=== PATIENT | female | born 1990 | race Two or more races ===

== ENCOUNTER 2023-12-03 14:15 | Inpatient (IN) | payer MEDICAID ==
[~2023-12-03] VITALS: Ht 165.1 cm; Wt 88.2 kg
[2023-12-03] MEDS ORDERED: CIPR500T10 PO (14:28)
[2023-12-03] MEDS: SODIUM CHLORIDE 0.9% 2,650 ML IV ONE (14:38)
[2023-12-03 14:51] LABS: BASOPHILS % (AUTO) 0.3 % (0.0-2.0); EOSINOPHILS % (AUTO) 0 % (1.0-6.0); HEMATOCRIT 37.2 % (36-46); HEMOGLOBIN 12.3 g/dL (12.0-16.0); LYMPHOCYTES % (AUTO) 12.7 % (22.0-44.0); MEAN CORPUSCULAR HEMOGLOBIN 29.9 pg (26.0-34.0); MEAN CORPUSCULAR HGB CONC 33.2 G/dL (31.0-37.0); MEAN CORPUSCULAR VOLUME 90 fL (80-100); MONOCYTES # (AUTO) 1.2 K/uL (0.1-1.0); MONOCYTES % (AUTO) 7.8 % (2.0-9.0); NEUTROPHILS # (AUTO) 12.2 K/uL (1.8-7.7); NEUTROPHILS % (AUTO) 79.2 % (40.0-70.0); PLATELET COUNT (AUTO) 266 K/uL (150-450); RED BLOOD CELL COUNT(AUTO) 4.12 MIL/uL (4.00-5.20); RED CELL DISTRIBUTION WIDTH 13.7 % (11.5-14.5); WHITE BLOOD COUNT (AUTO) 15.4 K/uL (4.5-11.0)
[2023-12-03] MEDS: IBUPROFEN 600 MG TABLET PO ONE (15:00)
[2023-12-03 15:10] LABS: ANION GAP 13 mmol/L (8-16); CALCIUM, TOTAL 8.6 mg/dL (8.8-10.5); CARBON DIOXIDE 23 mmol/L (22-29); CHLORIDE 99 mmol/L (98-107); CREATININE 1.01 mg/dL (0.60-1.30); GLOMERULAR FILTR. RATE CALC > 60 mL/min (>60); GLUCOSE,RANDOM 116 mg/dL (70-110); POTASSIUM 3.2 mmol/L (3.5-5.1); SODIUM SERUM 135 mmol/L (136-145); UREA NITROGEN, BLOOD 8 mg/dL (7-18)
[2023-12-03] MEDS: CefTRIAXone 1 GM/DEXTROSE 50 ML IV ONE (15:16)
[2023-12-03 15:17] LABS: APPEARANCE,URINE HAZY (CLEAR); BILIRUBIN,URINE NEGATIVE (NEGATIVE); COLOR,URINE YELLOW (YELLOW); GLUCOSE, URINE (UA) NEGATIVE (NEGATIVE); KETONES,URINE NEGATIVE (NEGATIVE); LEUKOCYTE ESTERASE ,URINE SMALL (NEGATIVE); NITRATE,URINE NEGATIVE (NEGATIVE); OCCULT BLOOD,URINE SMALL (NEGATIVE); PROTEIN,URINE 30-70 mg/dL (NEGATIVE); SPECIFIC GRAVITIY, URINE 1.018 (1.003-1.030); UROBILINOGEN,URINE <=1.0 mg/dL (<=1.0)
[2023-12-03 15:20] LABS: LACTIC ACID 1.2 mmol/L (0.4-2.0)
[2023-12-03 15:23] LABS: ALANINE AMINOTRANSFERASE 23 U/L (12-78); ALBUMIN 3.2 g/dL (3.4-5.0); ALKALINE PHOSPHATASE 62 U/L (46-116); ASPARTATE AMINOTRANSFERASE 15 U/L (15-37); BILIRUBIN,TOTAL 0.5 mg/dL (0.1-1.0); HCG,QUANTITATIVE < 1 mIU/mL (0-6); TOTAL PROTEIN, SERUM 7.9 g/dL (6.4-8.2)
[2023-12-03] MEDS ORDERED: SODIUM CHLORIDE 0.9% 100 ML ONE (15:56)
[2023-12-03] MEDS ORDERED: 0.9% SODIUM CHLORIDE 10 ML SYRINGE IVP ONE (15:56)
[2023-12-03] MEDS ORDERED: IOHEXOL 350 MG/ML 100 ML VIAL ONE (15:56)
[2023-12-03 16:04] LABS: BACTERIA,URINE Moderate /HPF (None Seen); SQUAMOUS EPITHELIAL CELL,UR Few /LPF (None Seen)
[2023-12-03] MEDS: *CLINICAL-LEVOFLOXACIN IVPB DOSING CLINICAL ONE (16:21)
[2023-12-03] MEDS ORDERED: OxyCODONE HCL/ACETAMINOPHEN 5-325 MG TABLET PO PRN (16:30)
[2023-12-03] MEDS ORDERED: POTASSIUM CHL 10 MEQ/WATER 50 ML IV PRN (16:30)
[2023-12-03] MEDS ORDERED: ONDANSETRON HCL 4 MG/2 ML VIAL IVP PRN (16:30)
[2023-12-03] MEDS: LEVOFLOXACIN 750 MG/D5% WATER 150 ML IV SCH (16:36)
[2023-12-03] MEDS: POTASSIUM CHLORIDE 20 MEQ ER TABLET PO PRN (16:37)
[2023-12-03] MEDS: SODIUM CHLORIDE 0.9% 1,000 ML IV ONE (18:26)
[2023-12-03] MEDS: DOCUSATE SODIUM 100 MG CAPSULE PO SCH (20:09)
[2023-12-03 22:30] VITALS: BP 120/72; PULSE 82; RESP 18; TEMP 98.2; O2SAT 99
[2023-12-04 04:29] VITALS: BP 121/69; PULSE 95; RESP 18; TEMP 98.6; O2SAT 100
[2023-12-04] MEDS: FAMOTIDINE 20 MG TABLET PO SCH (08:31)
[2023-12-04] MEDS: SODIUM CHLORIDE 0.9% 1,000 ML IV ONE (09:55)
[2023-12-04 11:55] VITALS: BP 115/85; PULSE 80; RESP 18; TEMP 97.6; O2SAT 100
[2023-12-04 16:27] VITALS: BP 117/74; PULSE 81; RESP 18; TEMP 98.9; O2SAT 99
[2023-12-04 20:10] VITALS: BP 107/54; PULSE 88; RESP 19; TEMP 98.3; O2SAT 98
[2023-12-04] MEDS ORDERED: ACETAMINOPHEN 325 MG TABLET PO PRN (20:30)
[2023-12-04] MEDS: ACETAMINOPHEN 325 MG TABLET PO PRN (20:54)
[2023-12-05 04:45] VITALS: BP 99/68; PULSE 68; RESP 18; TEMP 97.8; O2SAT 99
[2023-12-05 08:00] VITALS: BP 113/72; PULSE 60; RESP 18; TEMP 97.5; O2SAT 100
[2023-12-05 12:48] LABS: BASOPHILS % (AUTO) 0.8 % (0.0-2.0); HEMATOCRIT 38.6 % (36-46); HEMOGLOBIN 12.7 g/dL (12.0-16.0); LYMPHOCYTES # (AUTO) 2.4 K/uL (1.0-4.8); LYMPHOCYTES % (AUTO) 37.5 % (22.0-44.0); MEAN CORPUSCULAR HEMOGLOBIN 29.8 pg (26.0-34.0); MEAN CORPUSCULAR HGB CONC 32.8 G/dL (31.0-37.0); MEAN CORPUSCULAR VOLUME 91 fL (80-100); MONOCYTES # (AUTO) 0.5 K/uL (0.1-1.0); MONOCYTES % (AUTO) 6.9 % (2.0-9.0); NEUTROPHILS # (AUTO) 3.4 K/uL (1.8-7.7); NEUTROPHILS % (AUTO) 52.8 % (40.0-70.0); PLATELET COUNT (AUTO) 331 K/uL (150-450); RED BLOOD CELL COUNT(AUTO) 4.25 MIL/uL (4.00-5.20); RED CELL DISTRIBUTION WIDTH 13.5 % (11.5-14.5); WHITE BLOOD COUNT (AUTO) 6.5 K/uL (4.5-11.0)
[2023-12-05] MEDS ORDERED: LEVO750T68 PO (15:12)
== END 2023-12-05 17:01 | disposition home or self-care (01) | DRG 720 ==
LOC: EMS 14:15 → EDH 21:56 → 6N 22:23
PROVIDERS: ADMIT Internal Medicine; ATTEND Internal Medicine
DX: A41.9 Sepsis, unspecified organism (principal); E87.1 Hypo-osmolality and hyponatremia; N13.6 Pyonephrosis; E66.9 Obesity, unspecified; E87.6 Hypokalemia; Z87.442 Personal history of urinary calculi; Z68.32 Body mass index [BMI] 32.0-32.9, adult
CPT/HCPCS: 74177; 80053; 81001; 83605; 84132; 84145; 84702; 85025; 87040; 87086; 87186; 93005; 99285; J0696; J1956; J7030; J7050

== ENCOUNTER 2024-07-24 21:44 | Emergency (ER) | payer MEDICAID, OTHER ==
[~2024-07-24] VITALS: Ht 165.1 cm; Wt 63.6 kg
[~2024-07-24 21:44] MED LIST: LEVO750T68 PO
[2024-07-24 22:59] LABS: COVID AG,FIA SOURCE NASAL SWAB
[2024-07-24 23:03] LABS: APPEARANCE,URINE HAZY (CLEAR); BILIRUBIN,URINE NEGATIVE (NEGATIVE); COLOR,URINE YELLOW (YELLOW); GLUCOSE, URINE (UA) NEGATIVE (NEGATIVE); KETONES,URINE NEGATIVE (NEGATIVE); LEUKOCYTE ESTERASE ,URINE LARGE (NEGATIVE); NITRATE,URINE NEGATIVE (NEGATIVE); OCCULT BLOOD,URINE MODERATE (NEGATIVE); PH,URINE 6.5 (5.0-8.0); PROTEIN,URINE 30-70 mg/dL (NEGATIVE); SPECIFIC GRAVITIY, URINE 1.022 (1.003-1.030); UROBILINOGEN,URINE <=1.0 mg/dL (<=1.0)
[2024-07-24 23:17] LABS: BASOPHILS % (AUTO) 0.4 % (0.0-2.0); EOSINOPHILS % (AUTO) 0.2 % (1.0-6.0); HEMOGLOBIN 12.9 g/dL (12.0-16.0); LYMPHOCYTES # (AUTO) 1.4 K/uL (1.0-4.8); LYMPHOCYTES % (AUTO) 11.8 % (22.0-44.0); MEAN CORPUSCULAR HEMOGLOBIN 30.1 pg (26.0-34.0); MEAN CORPUSCULAR HGB CONC 33.8 G/dL (31.0-37.0); MEAN CORPUSCULAR VOLUME 89 fL (80-100); MONOCYTES % (AUTO) 8.4 % (2.0-9.0); NEUTROPHILS # (AUTO) 9.6 K/uL (1.8-7.7); NEUTROPHILS % (AUTO) 79.2 % (40.0-70.0); PLATELET COUNT (AUTO) 290 K/uL (150-450); RED BLOOD CELL COUNT(AUTO) 4.27 MIL/uL (4.00-5.20); RED CELL DISTRIBUTION WIDTH 13.3 % (11.5-14.5); WHITE BLOOD COUNT (AUTO) 12.1 K/uL (4.5-11.0)
[2024-07-24 23:19] LABS: SARS-COV2 (COVID) ANTIGEN,FIA Negative (Negative)
[2024-07-24 23:20] LABS: INFLUENZA TYPE A NEGATIVE FOR TYPE A (NEGATIVE); INFLUENZA TYPE B NEGATIVE FOR TYPE B (NEGATIVE)
[2024-07-24 23:21] LABS: BACTERIA,URINE Moderate /HPF (None Seen); SQUAMOUS EPITHELIAL CELL,UR Rare /LPF (None Seen); WBC,URINE >100 /HPF (0-5)
[2024-07-24 23:24] LABS: ANION GAP 8 mmol/L (8-16); CALCIUM, TOTAL 8.4 mg/dL (8.8-10.5); CARBON DIOXIDE 25 mmol/L (22-29); CHLORIDE 103 mmol/L (98-107); CREATININE 0.96 mg/dL (0.60-1.30); GLOMERULAR FILTR. RATE CALC > 60 mL/min (>60); GLUCOSE,RANDOM 130 mg/dL (70-110); POTASSIUM 3.8 mmol/L (3.5-5.1); SODIUM SERUM 136 mmol/L (136-145); UREA NITROGEN, BLOOD 9 mg/dL (7-18)
[2024-07-24 23:29] LABS: PROTHROMBIN TIME 10.7 SEC (9.4-11.6)
[2024-07-24 23:34] LABS: LACTIC ACID 0.9 mmol/L (0.4-2.0)
[2024-07-25] MEDS: KETOROLAC TROMETHAMINE 30 MG/ML VIAL IVP ONE (02:08)
[2024-07-25] MEDS: SODIUM CHLORIDE 0.9% 1,000 ML IV ONE (02:08)
[2024-07-25] MEDS: CefTRIAXone 1 GM/DEXTROSE 50 ML IV ONE (02:09)
[2024-07-25 04:15] VITALS: BP 96/51; PULSE 87; RESP 18; TEMP 98.4; O2SAT 99
[2024-07-25] MEDS ORDERED: CEPH-558 PO (04:31)
[2024-07-25] MEDS ORDERED: TRAM50TA5 PO (04:31)
== END 2024-07-25 04:58 | disposition home or self-care (01) ==
LOC: EMS 21:44
DX: N20.0 Calculus of kidney (principal); N39.0 Urinary tract infection, site not specified; R00.0 Tachycardia, unspecified; Z90.49 Acquired absence of other specified parts of digestive tract; Z87.440 Personal history of urinary (tract) infections; Z20.822 Contact with and (suspected) exposure to COVID-19
CPT/HCPCS: 99285; 87426; 80048; 81001; 83605; 84703; 85025; 85610; 87040; 87077; 87086; 87186; 87804; 93005; 84145; 74176; 96365; 96366; 96375; 36415; J1885; J0696; J7030; 96360

== ENCOUNTER 2024-12-14 11:50 | Inpatient (IN) | payer OTHER ==
[~2024-12-14] VITALS: Ht 167.6 cm; Wt 87.7 kg
[~2024-12-14 11:50] MED LIST changes: +AMOX1TAB15 PO; -LEVO750T68 PO; +TRAM50TA5 PO
[2024-12-14 12:26] LABS: COVID AG,FIA SOURCE NASAL SWAB
[2024-12-14 12:30] LABS: PLATELET COUNT (AUTO) 335 K/uL (150-450); RED BLOOD CELL COUNT(AUTO) 4.12 MIL/uL (4.00-5.20); RED CELL DISTRIBUTION WIDTH 13.3 % (11.5-14.5); WHITE BLOOD COUNT (AUTO) 20.9 K/uL (4.5-11.0)
[2024-12-14 12:31] LABS: APPEARANCE,URINE CLEAR (CLEAR); GLUCOSE, URINE (UA) NEGATIVE (NEGATIVE); LEUKOCYTE ESTERASE ,URINE MODERATE (NEGATIVE); NITRATE,URINE NEGATIVE (NEGATIVE); OCCULT BLOOD,URINE MODERATE (NEGATIVE); SPECIFIC GRAVITIY, URINE 1.023 (1.003-1.030)
[2024-12-14 12:43] LABS: LACTIC ACID 2.4 mmol/L (0.4-2.0)
[2024-12-14 12:46] LABS: CREATININE 0.79 mg/dL (0.60-1.30); GLUCOSE,RANDOM 128 mg/dL (70-110); SODIUM SERUM 134 mmol/L (136-145); UREA NITROGEN, BLOOD 10 mg/dL (7-18)
[2024-12-14 12:46] LABS: SARS-COV2 (COVID) ANTIGEN,FIA Negative (Negative)
[2024-12-14 12:47] LABS: CALCIUM, TOTAL 8.7 mg/dL (8.8-10.5); GLOMERULAR FILTR. RATE CALC > 60 mL/min (>60)
[2024-12-14 12:50] LABS: INFLUENZA TYPE A NEGATIVE FOR TYPE A (NEGATIVE); INFLUENZA TYPE B NEGATIVE FOR TYPE B (NEGATIVE)
[2024-12-14] MEDS: LIDOCAINE/PF 1% 2 ML VIAL IM ONE (12:53)
[2024-12-14] MEDS: CefTRIAXone SODIUM 1 GM/VIAL IM ONE (12:53)
[2024-12-14] MEDS: ACETAMINOPHEN 500 MG TABLET PO ONE (12:54)
[2024-12-14] MEDS: IBUPROFEN 600 MG TABLET PO ONE (12:54)
[2024-12-14] MEDS: DOXYCYCLINE HYCLATE 100 MG TABLET PO ONE (12:54)
[2024-12-14 13:03] LABS: SQUAMOUS EPITHELIAL CELL,UR Many /LPF (None Seen)
[2024-12-14] MEDS: LIDOCAINE 1% 10 ML VIAL SQ ONE (13:19)
[2024-12-14] MEDS: ONDANSETRON HCL 4 MG/2 ML VIAL IM ONE (13:19)
[2024-12-14] MEDS: VANCOMYCIN HCL 1.25 GM in DEXTROSE 5%-WATER 250 ML IV ONE (14:34)
[2024-12-14] MEDS: SODIUM CHLORIDE 0.9% 2,650 ML IV ONE (14:35)
[2024-12-14] MEDS ORDERED: BISACODYL 10 MG RECTAL RECTAL SUPPOSITORY PR PRN (16:00)
[2024-12-14] MEDS ORDERED: ZOLPIDEM TARTRATE 5 MG TABLET PO PRN (16:00)
[2024-12-14] MEDS ORDERED: MAGNESIUM HYDROXIDE SUSPENSION 30 ML UDCUP PO PRN (16:00)
[2024-12-14] MEDS: SODIUM CHLORIDE 0.9% 1,000 ML IV ONE (16:48)
[2024-12-14] MEDS: HEPARIN SODIUM,PORCINE 5,000 UNITS/ML VIAL SQ SCH (16:48)
[2024-12-14] MEDS: HYDROCODONE/ACETAMINOPHEN 5-325 MG TABLET PO PRN (16:48)
[2024-12-14] MEDS: DOCUSATE SODIUM 100 MG CAPSULE PO SCH (20:28)
[2024-12-14] MEDS: DOXYCYCLINE HYCLATE 100 MG TABLET PO SCH (20:59)
[2024-12-14 22:35] VITALS: BP 109/57; PULSE 94; RESP 18; TEMP 97.9; O2SAT 99
[2024-12-14] MEDS: VANCOMYCIN HCL 1 GM/D5% WATER 200 ML IV SCH (23:07)
[2024-12-14 23:23] VITALS: BP 106/57; PULSE 84; RESP 19; O2SAT 99
[2024-12-15 05:15] VITALS: BP 94/58; PULSE 84; RESP 18; TEMP 98.6; O2SAT 100
[2024-12-15 07:27] LABS: PLATELET COUNT (AUTO) 262 K/uL (150-450); RED BLOOD CELL COUNT(AUTO) 3.68 MIL/uL (4.00-5.20); RED CELL DISTRIBUTION WIDTH 13.4 % (11.5-14.5); WHITE BLOOD COUNT (AUTO) 14.8 K/uL (4.5-11.0)
[2024-12-15 07:36] LABS: CALCIUM, TOTAL 8.0 mg/dL (8.8-10.5); CREATININE 0.52 mg/dL (0.60-1.30); GLOMERULAR FILTR. RATE CALC > 60 mL/min (>60); GLUCOSE,RANDOM 114 mg/dL (70-110); SODIUM SERUM 139 mmol/L (136-145); UREA NITROGEN, BLOOD 7 mg/dL (7-18)
[2024-12-15 08:00] VITALS: BP 98/70; PULSE 99; RESP 19; TEMP 98.2; O2SAT 100
[2024-12-15] MEDS: PANTOPRAZOLE SODIUM 40 MG DR TABLET PO SCH (08:20)
[2024-12-15 14:52] VITALS: BP 110/64; PULSE 114; RESP 19; O2SAT 100
[2024-12-15] MEDS: MORPHINE SULFATE 4 MG/ML SYRINGE IVP PRN (14:53)
[2024-12-15] MEDS: ACETAMINOPHEN 325 MG TABLET PO PRN (16:20)
[2024-12-15 19:54] VITALS: BP 111/71; PULSE 99; RESP 18; TEMP 98.6; O2SAT 100
[2024-12-16 03:20] VITALS: BP 101/67; PULSE 90; RESP 16; TEMP 98; O2SAT 100
[2024-12-16 06:32] LABS: PLATELET COUNT (AUTO) 291 K/uL (150-450); RED BLOOD CELL COUNT(AUTO) 3.67 MIL/uL (4.00-5.20); RED CELL DISTRIBUTION WIDTH 13.2 % (11.5-14.5); WHITE BLOOD COUNT (AUTO) 15.1 K/uL (4.5-11.0)
[2024-12-16 06:40] LABS: CALCIUM, TOTAL 8.1 mg/dL (8.8-10.5); CREATININE 0.50 mg/dL (0.60-1.30); GLOMERULAR FILTR. RATE CALC > 60 mL/min (>60); GLUCOSE,RANDOM 112 mg/dL (70-110); SODIUM SERUM 138 mmol/L (136-145); UREA NITROGEN, BLOOD 6 mg/dL (7-18)
[2024-12-16 08:18] VITALS: BP 105/62; PULSE 94; RESP 18; TEMP 98.8; O2SAT 98
[2024-12-16] MEDS: VANCOMYCIN HCL 1.25 GM in DEXTROSE 5%-WATER 250 ML IV SCH (08:44)
[2024-12-16] MEDS: ONDANSETRON HCL 4 MG/2 ML VIAL IVP PRN (08:54)
[2024-12-16] MEDS: POTASSIUM CHLORIDE 20 MEQ ER TABLET PO ONE (13:01)
[2024-12-16 16:27] VITALS: BP 109/57; PULSE 85; RESP 18; TEMP 98.4; O2SAT 100
[2024-12-16 19:45] VITALS: BP 102/60; PULSE 97; RESP 18; TEMP 97.3; O2SAT 98
[2024-12-16] MEDS ORDERED: SODIUM CHLORIDE 0.9% 250 ML IV ONE (23:12)
[2024-12-17 05:17] VITALS: BP 104/67; PULSE 79; RESP 18; TEMP 97.9; O2SAT 99
[2024-12-17 07:56] LABS: PLATELET COUNT (AUTO) 384 K/uL (150-450); RED BLOOD CELL COUNT(AUTO) 4.16 MIL/uL (4.00-5.20); RED CELL DISTRIBUTION WIDTH 13.0 % (11.5-14.5); WHITE BLOOD COUNT (AUTO) 10.2 K/uL (4.5-11.0)
[2024-12-17 08:07] LABS: CALCIUM, TOTAL 8.6 mg/dL (8.8-10.5); CREATININE 0.50 mg/dL (0.60-1.30); GLOMERULAR FILTR. RATE CALC > 60 mL/min (>60); GLUCOSE,RANDOM 107 mg/dL (70-110); SODIUM SERUM 138 mmol/L (136-145); UREA NITROGEN, BLOOD 7 mg/dL (7-18)
[2024-12-17 08:42] VITALS: BP 113/63; PULSE 73; RESP 18; TEMP 98.1; O2SAT 100
[2024-12-17 15:16] LABS: CALCIUM, TOTAL 8.7 mg/dL (8.8-10.5); CREATININE 0.69 mg/dL (0.60-1.30); GLOMERULAR FILTR. RATE CALC > 60 mL/min (>60); GLUCOSE,RANDOM 103 mg/dL (70-110); SODIUM SERUM 137 mmol/L (136-145); UREA NITROGEN, BLOOD 8 mg/dL (7-18)
[2024-12-17 15:17] LABS: PLATELET COUNT (AUTO) 429 K/uL (150-450); RED BLOOD CELL COUNT(AUTO) 4.19 MIL/uL (4.00-5.20); RED CELL DISTRIBUTION WIDTH 13.4 % (11.5-14.5); WHITE BLOOD COUNT (AUTO) 11.4 K/uL (4.5-11.0)
[2024-12-17 15:20] LABS: ASPARTATE AMINOTRANSFERASE 18 U/L (15-37); TOTAL PROTEIN, SERUM 7.8 g/dL (6.4-8.2)
[2024-12-17 15:58] VITALS: BP 113/74; PULSE 87; RESP 18; TEMP 98.1; O2SAT 99
[2024-12-17] MEDS ORDERED: HYDR-4062 PO (17:18)
[2024-12-17] MEDS ORDERED: DOXY-354 PO ×2 (17:18)
[2024-12-17] MEDS ORDERED: DOCU-119 PO (17:21)
== END 2024-12-17 19:10 | disposition home or self-care (01) | DRG 720 ==
LOC: EMS 11:54 → EDH 14:16 → 6S 22:20
PROVIDERS: ADMIT Internal Medicine; ATTEND Internal Medicine
PROC: 0X943ZZ Drainage of Right Axilla, Percutaneous Approach (ICD-10-PCS; principal; 2024-12-14)
DX: A41.9 Sepsis, unspecified organism (principal); E88.09 Other disorders of plasma-protein metabolism, not elsewhere classified; D64.9 Anemia, unspecified; L03.113 Cellulitis of right upper limb; L73.2 Hidradenitis suppurativa; N39.0 Urinary tract infection, site not specified; E87.6 Hypokalemia; Z20.822 Contact with and (suspected) exposure to COVID-19; Z87.440 Personal history of urinary (tract) infections; Z87.442 Personal history of urinary calculi
CPT/HCPCS: 71045; 80048; 80053; 80202; 81001; 83605; 84145; 84703; 85025; 87040; 87086; 87804; 99285; J0696; J1171; J1644; J2270; J2405; J3373; J3490; J7030; J7050; J7060; 36415-L1; 36415-TC